=== PATIENT | female | born 1985 | race Caucasian/White ===

== ENCOUNTER 2021-05-06 13:08 | Inpatient (IN) | payer SELFPAY ==
[~2021-05-06] VITALS: Ht 170.2 cm; Wt 93.0 kg
[2021-05-06] MEDS ORDERED: ACETAMINOPHEN 325 MG TAB PO ONE (13:45)
[2021-05-06] MEDS ORDERED: PIPERACILLIN/TAZO 4.5 GM 100 ML IV SCH (14:00)
[2021-05-06 14:40] LABS: BASOPHILS % 0.4 % (0.0-1.0); EOSINOPHILS % 0.4 % (0.0-6.0); HEMATOCRIT 26.8 % (34.2-44.1); HEMOGLOBIN 8.5 g/dL (12.0-16.0); LYMPHOCYTES # (AUTO) 1.7 (1.0-3.2); LYMPHOCYTES % 20.4 % (18.0-39.1); MEAN CORPUSCULAR HEMOGLOBIN 26.9 pg (28-32); MEAN CORPUSCULAR HGB CONC 31.7 g/dL (31-35); MEAN CORPUSCULAR VOLUME 84.8 fL (81-99); MONOCYTES # (AUTO) 0.7 (0.2-0.8); MONOCYTES % 8.6 % (4.4-11.3); NEUTROPHILS # (AUTO) 5.6 (2.1-6.9); NEUTROPHILS % 68.8 % (38.7-80.0); PLATELET COUNT 148 x10e3/uL (140-360); RED BLOOD COUNT 3.16 x10e6/uL (3.6-5.1); RED CELL DISTRIBUTION WIDTH 14.6 % (11.7-14.4)
[2021-05-06 14:45] LABS: CLARITY,URINE SL CLOUDY (CLEAR); COLOR,URINE YELLOW (YELLOW); KETONES,URINE NEGATIVE (NEGATIVE); LEUKOCYTE ESTERASE ,URINE NEGATIVE (NEGATIVE); NITRITE,URINE NEGATIVE (NEGATIVE); PROTEIN,URINE DIPSTICK TRACE (NEGATIVE); URINE UROBILINOGEN 4 mg/dL (0.2 - 1); WBC,URINE (MAN) 0-5 /HPF (0-5)
[2021-05-06] MEDS ORDERED: ONDANSETRON HCL 4 MG ORAL DISINTEGRATING TAB PO ONE (14:45)
[2021-05-06 14:46] LABS: BACTERIA,URINE FEW /HPF; EPITHELIAL CELLS,URINE MODERATE /LPF
[2021-05-06 14:57] LABS: ALANINE AMINOTRANSFERASE 18 IU/L (0-55); ALBUMIN 2.5 g/dL (3.5-5.0); ALBUMIN/GLOBULIN RATIO 0.6 (0.8-2.0); ALKALINE PHOSPHATASE 81 IU/L (40-150); ANION GAP 12.7 mmol/L (8-16); BLOOD UREA NITROGEN < 5 mg/dL (7-26); BUN/CREATININE RATIO 9 (6-25); CALCIUM 8.2 mg/dL (8.4-10.2); CARBON DIOXIDE 25 mmol/L (22-29); CHLORIDE 103 mmol/L (98-107); CREATININE, SERUM 0.58 mg/dL (0.57-1.11); EST GLOMERULAR FILTRATION RATE > 60 ML/MIN (60-); GLUCOSE 86 mg/dL (74-118); POTASSIUM 3.7 mmol/L (3.5-5.1); SODIUM 137 mmol/L (136-145)
[2021-05-06] MEDS ORDERED: MORPHINE SULFATE INJ 2 MG/ML SYR IV PRN (15:00)
[2021-05-06] MEDS: SODIUM CHLORIDE 0.9% 1000ML 1,000 ML IV SCH ×2 (19:46→21:30)
[2021-05-06 20:00] VITALS: BP 118/62
[2021-05-06 21:06] VITALS: BP 133/83
[2021-05-06 21:20] VITALS: BP 133/83
[2021-05-06] MEDS: MORPHINE SULFATE INJ 4 MG/ML INJ 1ML IV PRN (21:30)
[2021-05-06] MEDS: ONDANSETRON HCL INJ 2MG/ML 2ML 2 MG/ML VIAL IV PRN (21:30)
[2021-05-07] VITALS (8 sets, daily range): BP systolic 109–129; BP diastolic 42–71
[2021-05-07] MEDS: KETOROLAC TROMETHAMINE 30 MG/ML VIAL IV PRN (01:00)
[2021-05-07] MEDS: SODIUM CHLORIDE 0.9% 1000ML 1,000 ML IV SCH ×3 (05:08→21:54)
[2021-05-07] MEDS: ONDANSETRON HCL INJ 2MG/ML 2ML 2 MG/ML VIAL IV PRN (05:08)
[2021-05-07] MEDS: MORPHINE SULFATE INJ 4 MG/ML INJ 1ML IV PRN ×3 (05:08→18:41)
[2021-05-07 05:27] LABS: BASOPHILS % 0.5 % (0.0-1.0); EOSINOPHILS # (AUTO) 0.1 (0.0-0.4); EOSINOPHILS % 0.9 % (0.0-6.0); HEMOGLOBIN 8.8 g/dL (12.0-16.0); LYMPHOCYTES # (AUTO) 1.8 (1.0-3.2); LYMPHOCYTES % 22.9 % (18.0-39.1); MEAN CORPUSCULAR HEMOGLOBIN 26.4 pg (28-32); MEAN CORPUSCULAR HGB CONC 31.4 g/dL (31-35); MEAN CORPUSCULAR VOLUME 84.1 fL (81-99); MONOCYTES # (AUTO) 0.7 (0.2-0.8); MONOCYTES % 8.6 % (4.4-11.3); NEUTROPHILS # (AUTO) 5.2 (2.1-6.9); PLATELET COUNT 277 x10e3/uL (140-360); RED BLOOD COUNT 3.33 x10e6/uL (3.6-5.1); RED CELL DISTRIBUTION WIDTH 14.6 % (11.7-14.4)
[2021-05-07 05:46] LABS: BLOOD UREA NITROGEN 6 mg/dL (7-26); BUN/CREATININE RATIO 10 (6-25); CALCIUM 7.9 mg/dL (8.4-10.2); CARBON DIOXIDE 25 mmol/L (22-29); CHLORIDE 106 mmol/L (98-107); CREATININE, SERUM 0.58 mg/dL (0.57-1.11); EST GLOMERULAR FILTRATION RATE > 60 ML/MIN (60-); GLUCOSE 138 mg/dL (74-118); SODIUM 142 mmol/L (136-145)
[2021-05-07 07:25] LABS: % IRON SATURATION 8 % (15-50); IRON 13 ug/dL (50-170); TOTAL IRON BINDING CAPACITY 172 ug/dL (261-478); TRANSFERRIN 123 mg/dL (180-382)
[2021-05-07] MEDS ORDERED: ACETAMINOPHEN 325 MG TAB PO PRN (08:15)
[2021-05-07] MEDS: PIPERACILLIN/TAZO 4.5 GM 100 ML IV SCH ×2 (08:30→20:58)
[2021-05-07] MEDS: POTASSIUM CHLORIDE 20 MEQ TAB CR PO SCH (09:54)
[2021-05-08] VITALS (8 sets, daily range): BP systolic 108–126; BP diastolic 50–80
[2021-05-08] MEDS: MORPHINE SULFATE INJ 4 MG/ML INJ 1ML IV PRN ×3 (01:30→20:05)
[2021-05-08] MEDS: ONDANSETRON HCL INJ 2MG/ML 2ML 2 MG/ML VIAL IV PRN ×3 (01:30→20:05)
[2021-05-08] MEDS: SODIUM CHLORIDE 0.9% 1000ML 1,000 ML IV SCH ×3 (06:11→22:45)
[2021-05-08 06:29] LABS: BLOOD UREA NITROGEN 6 mg/dL (7-26); BUN/CREATININE RATIO 10 (6-25); CALCIUM 7.8 mg/dL (8.4-10.2); CARBON DIOXIDE 27 mmol/L (22-29); CHLORIDE 106 mmol/L (98-107); CREATININE, SERUM 0.58 mg/dL (0.57-1.11); EST GLOMERULAR FILTRATION RATE > 60 ML/MIN (60-); GLUCOSE 117 mg/dL (74-118); SODIUM 141 mmol/L (136-145)
[2021-05-08] MEDS: PIPERACILLIN/TAZO 4.5 GM 100 ML IV SCH ×2 (10:12→20:05)
[2021-05-08] MEDS: POTASSIUM CHLORIDE 20 MEQ TAB CR PO SCH (10:13)
[2021-05-09] VITALS: BP 131/71
[2021-05-09] MEDS: KETOROLAC TROMETHAMINE 30 MG/ML VIAL IV PRN ×2 (03:07→08:27)
[2021-05-09 04:15] VITALS: BP 107/57
[2021-05-09] MEDS: SODIUM CHLORIDE 0.9% 1000ML 1,000 ML IV SCH (06:42)
[2021-05-09] MEDS: POTASSIUM CHLORIDE 20 MEQ TAB CR PO SCH (08:17)
[2021-05-09] MEDS: PIPERACILLIN/TAZO 4.5 GM 100 ML IV SCH (08:17)
[2021-05-09 08:42] VITALS: BP 113/75
[2021-05-09 09:00] VITALS: BP 113/75
[2021-05-09] MEDS ORDERED: BACTRIM DS TAB1 EACH PO (09:55)
== END 2021-05-09 10:28 | disposition home or self-care (01) | DRG 690 ==
LOC: ER 13:40 → ERHOLD 16:08 → MED/SURG2 18:34 → OBSVTOIN 05-07 11:43
PROVIDERS: ADMIT Family Medicine; ATTEND Family Medicine
PROC: 02HV33Z Insertion of Infusion Device into Superior Vena Cava, Percutaneous Approach (ICD-10-PCS; principal; 2021-05-06)
DX: N12 Tubulo-interstitial nephritis, not specified as acute or chronic (principal); R16.1 Splenomegaly, not elsewhere classified; Z87.891 Personal history of nicotine dependence; Z20.822 Contact with and (suspected) exposure to COVID-19; D64.9 Anemia, unspecified
CPT/HCPCS: 36415; 36569; 71045; 74176; 80048; 80053; 81001; 83540; 83605; 84466; 84702; 85025; 87040; 87086; 99283; G0378; J1885; J2270; J2405; J2543; J7030; U0002

== ENCOUNTER 2022-01-07 00:31 | Emergency (ER) | payer SELFPAY ==
[~2022-01-07] VITALS: Ht 170.2 cm; Wt 93.0 kg
[~2022-01-07 00:31] MED LIST: BACTRIM DS TAB1 EACH PO
[2022-01-07 01:31] VITALS: BP 123/70
== END 2022-01-07 01:30 | disposition home or self-care (01) ==
LOC: ER 00:35
DX: R50.9 Fever, unspecified (principal); U07.1 COVID-19; F17.210 Nicotine dependence, cigarettes, uncomplicated
CPT/HCPCS: 83518; 87070; 99283; U0002

== ENCOUNTER 2022-01-29 21:37 | Emergency (ER) | payer SELFPAY ==
[~2022-01-29] VITALS: Ht 165.1 cm; Wt 81.6 kg
[2022-01-29] MEDS ORDERED: ONDANSETRON HCL 4 MG ORAL DISINTEGRATING TAB PO ONE (21:45)
[2022-01-29] MEDS ORDERED: DONNATAL/LIDOCAINE/MAALOX 30 ML SUSP PO STA (21:49)
[2022-01-29] MEDS ORDERED: LIDOCAINE VISC 2% SOLN 15 ML UDC ONE (22:06)
[2022-01-29] MEDS ORDERED: BELLADONNA ALK/PHENOBARBITAL 5 ML UDC ONE (22:07)
[2022-01-29] MEDS ORDERED: MAGNESIUM/ALUMINUM/SIMETHICONE 30 ML UDC ONE (22:07)
[2022-01-29] MEDS ORDERED: PANTOPRAZOLE SOD 40 MG TABEC ONE (22:15)
[2022-01-29] MEDS ORDERED: PANTOPRAZOLE SOD 40 MG TABEC PO ONE (22:15)
[2022-01-29 22:38] LABS: BASOPHILS % 0.5 % (0.0-1.0); EOSINOPHILS % 0.6 % (0.0-6.0); HEMATOCRIT 42.4 % (34.2-44.1); HEMOGLOBIN 14.3 g/dL (12.0-16.0); LYMPHOCYTES # (AUTO) 1.5 (1.0-3.2); LYMPHOCYTES % 22.9 % (18.0-39.1); MEAN CORPUSCULAR HEMOGLOBIN 27.9 pg (28-32); MEAN CORPUSCULAR HGB CONC 33.7 g/dL (31-35); MEAN CORPUSCULAR VOLUME 82.7 fL (81-99); MONOCYTES # (AUTO) 0.7 (0.2-0.8); MONOCYTES % 10.7 % (4.4-11.3); NEUTROPHILS # (AUTO) 4.2 (2.1-6.9); PLATELET COUNT 93 x10e3/uL (140-360); RED BLOOD COUNT 5.13 x10e6/uL (3.6-5.1); RED CELL DISTRIBUTION WIDTH 13.4 % (11.7-14.4)
[2022-01-29 22:58] LABS: CLARITY,URINE CLOUDY (CLEAR); COLOR,URINE AMBER (YELLOW); KETONES,URINE TRACE (NEGATIVE); LEUKOCYTE ESTERASE ,URINE 2+ (NEGATIVE); NITRITE,URINE POSITIVE (NEGATIVE); PROTEIN,URINE DIPSTICK 1+ (NEGATIVE); URINE UROBILINOGEN 2 mg/dL (0.2 - 1)
[2022-01-29 23:00] LABS: ALBUMIN 3.5 g/dL (3.5-5.0); ALBUMIN/GLOBULIN RATIO 0.9 (0.8-2.0); ANION GAP 13.5 mmol/L (8-16); CREATININE, SERUM 0.66 mg/dL (0.57-1.11); POTASSIUM 4.5 mmol/L (3.5-5.1)
[2022-01-29 23:02] LABS: CALCIUM 9.1 mg/dL (8.4-10.2)
[2022-01-29 23:35] LABS: BACTERIA,URINE MANY /HPF; EPITHELIAL CELLS,URINE FEW /LPF; RBC,URINE 21-50 /HPF (0-5); WBC,URINE (MAN) >50 /HPF (0-5)
[2022-01-29] MEDS ORDERED: CEFDINIR 300 MG CAP PO STA (23:53)
[2022-01-29] MEDS ORDERED: CEFDINIR300 MG PO (23:55)
[2022-01-29] MEDS ORDERED: ONDANSETRON ODT4 MG PO (23:56)
[2022-01-30] MEDS ORDERED: CEFTRIAXONE 1 GM VIAL IV ONE
== END 2022-01-30 00:18 | disposition home or self-care (01) ==
LOC: ER 21:43
DX: R10.13 Epigastric pain (principal); N12 Tubulo-interstitial nephritis, not specified as acute or chronic; R11.2 Nausea with vomiting, unspecified
CPT/HCPCS: 36415; 80053; 81001; 83690; 84702; 85025; 99283; Q0162; S0164